=== PATIENT | male | born 1975 | race Caucasian/White ===

== ENCOUNTER 2016-12-29 00:50 | Emergency (ER) | payer OTHER ==
[~2016-12-29] VITALS: Ht 177.8 cm; Wt 83.9 kg
[2016-12-29 01:00] VITALS: BP 123/71
[2016-12-29] MEDS ORDERED: NORCO 5-325 TA1 EACH PO (01:11)
== END 2016-12-29 01:53 | disposition home or self-care (01) ==
LOC: ER 00:50
DX: S83.92XA Sprain of unspecified site of left knee, initial encounter (principal); W22.8XXA Striking against or struck by other objects, initial encounter; Y93.89 Activity, other specified; Y92.89 Other specified places as the place of occurrence of the external cause; Y99.8 Other external cause status